=== PATIENT | female | born 1980 | race Caucasian/White ===

== ENCOUNTER 2018-01-11 08:07 | Emergency (ER) | payer MEDICAID ==
[~2018-01-11] VITALS: Ht 180.3 cm; Wt 100.3 kg
[2018-01-11 08:15] VITALS: Ht 180.3 cm; Wt 100.3 kg
[2018-01-11 12:27] VITALS: BP 123/46
== END 2018-01-11 12:27 | disposition home or self-care (01) ==
LOC: ED 08:07
DX: S16.1XXA Strain of muscle, fascia and tendon at neck level, initial encounter (principal); X58.XXXA Exposure to other specified factors, initial encounter; Y93.89 Activity, other specified; Y92.89 Other specified places as the place of occurrence of the external cause; Y99.8 Other external cause status
CPT/HCPCS: J1100; J1885